=== PATIENT | male | born 1965 | race Caucasian/White ===

== ENCOUNTER 2016-11-07 20:10 | Emergency (ER) | payer SELFPAY ==
[~2016-11-07] VITALS: Ht 172.7 cm; Wt 68.0 kg
[2016-11-07 20:14] VITALS: Ht 172.7 cm; Wt 68.0 kg
== END 2016-11-07 20:47 | disposition left against medical advice (07) ==
LOC: FTE 20:10
DX: Z53.21 Procedure and treatment not carried out due to patient leaving prior to being seen by health care provider (principal)

== ENCOUNTER 2016-11-24 20:05 | Inpatient (IN) | payer OTHER ==
[~2016-11-24] VITALS: Ht 175.3 cm; Wt 64.5 kg
[2016-11-24] MEDS ORDERED: SOD CHLORIDE 0.9% 1,000 ML IV STA (21:40)
[2016-11-24] MEDS ORDERED: LORAZEPAM 2 MG INJ IV STA (21:40)
[2016-11-24 22:05] LABS: ADD SCAN DIFF NO
[2016-11-24 22:07] LABS: BASOPHILS % 0.1 % (0.0-2.0); EOSINOPHILS # 0.1 10^3/ul (0.0-0.5); EOSINOPHILS % 1.2 % (0.0-7.0); HEMATOCRIT 37.5 % (42.0-52.0); HEMOGLOBIN 12.9 g/dl (14.0-18.0); LYMPHOCYTES # 2.2 10^3/ul (0.8-2.9); LYMPHOCYTES % 27.5 % (15.0-51.0); MEAN CORPUSCULAR HEMOGLOBIN 32.4 pg (29.0-33.0); MEAN CORPUSCULAR HGB CONC 34.4 g/dl (32.0-37.0); MEAN CORPUSCULAR VOLUME 94.2 fl (82.0-101.0); MEAN PLATELET VOLUME 9.9 fl (7.4-10.4); MONOCYTE # 0.6 10^3/ul (0.3-0.9); MONOCYTES % 7.9 % (0.0-11.0); NEUTROPHIL # 5.1 10^3/ul (1.6-7.5); NEUTROPHILS % 62.8 % (39.0-77.0); PLATELET COUNT 200 10^3/UL (140-415); RED BLOOD COUNT 3.98 10^6/ul (4.70-6.10); RED CELL DISTRIBUTION WIDTH 11.9 % (11.5-14.5); WHITE BLOOD COUNT 8.1 10^3/ul (4.8-10.8)
[2016-11-24 22:17] LABS: ALBUMIN 4.1 g/dl (3.3-4.9)
[2016-11-24 22:18] LABS: CHLORIDE 100 mmol/L (97-110); POTASSIUM 4.2 mmol/L (3.5-5.1); SODIUM 135 mmol/L (135-144)
[2016-11-24 22:20] LABS: ADD UMIC YES; ALBUMIN/GLOBULIN RATIO 1.28; ALKALINE PHOSPHATASE 72 IU/L (42-121); ANION GAP 13 (8-16); ASPARTATE AMINO TRANSFERASE 683 IU/L (15-46); BILIRUBIN,INDIRECT 1.2 mg/dl (0-1.1); BILIRUBIN,TOTAL 1.2 mg/dl (0.2-1.3); BLOOD UREA NITROGEN 18 mg/dl (7-20); CARBON DIOXIDE 26 mmol/L (21-31); CREATININE 0.98 mg/dl (0.61-1.24); TOTAL PROTEIN 7.3 g/dl (6.1-8.1); URINE BILIRUBIN (Dip) 1+ (NEGATIVE); URINE BLOOD (Dip) 2+ (NEGATIVE); URINE COLOR DK. YELLOW (YELLOW); URINE GLUCOSE (Dip) NEGATIVE (NEGATIVE); URINE KETONES (Dip) 15 (NEGATIVE); URINE LEUKOCYTE ESTERASE (Dip) NEGATIVE (NEGATIVE); URINE NITRITE (Dip) NEGATIVE (NEGATIVE); URINE TOTAL PROTEIN (Dip) 1+ (NEGATIVE); URINE UROBILINOGEN (Dip) 2.0 E.U./dL (0.1-1.0)
[2016-11-24 22:21] LABS: ALANINE AMINOTRANSFERASE 203 IU/L (13-69); CALCIUM 9.2 mg/dl (8.4-10.2); GLUCOSE 92 mg/dl (70-220)
[2016-11-24 22:32] LABS: CANNABINOIDS Negative (NEGATIVE)
[2016-11-24 22:34] LABS: OPIATES Negative (NEGATIVE)
[2016-11-24 22:37] LABS: ACETAMINOPHEN < 10.0 ug/ml (10.0-30.0); SALICYLATE < 1.0 mg/dl (5.0-30.0)
[2016-11-24 22:40] LABS: BACTERIA,URINE FEW; ICTOTEST NEGATIVE (NEGATIVE); MUCUS,URINE MODERATE; TRANSITIONAL EPI CELLS,URINE OCCASIONAL; URINE RBCS 0-2 /HPF (0)
[2016-11-24 22:49] LABS: BARBITURATES Negative (NEGATIVE); BENZODIAZEPINES Negative (NEGATIVE); COCAINE Positive (NEGATIVE)
--- NOTE | 2016-11-24 22:54 | ERD ---
ER Documentation Chief Complaint Date/Time DATE: 11/24/16 TIME: 22:47 Chief Complaint suicidal ttempt- overdose w/ crystal meth, came holding a knife in triage HPI 51-year-old man brought in by his manager msw after he recently "ran away" patient states he was using methamphetamine for the last few days. Patient was triaged as suicidal attempt, although patient denies this he had no intention of hurting himself or others and has had no suicidal thoughts or feelings. He states he has been using methamphetamine and had agitation today but did not cut himself or hurt himself. He denies fevers or chills, no chest pain or shortness, no headache or blurry vision. Patient denies penile discharge or dysuria. Patient states he used to use antipsychotic medications although does not feel that he needs a refill and does not recall the names of them. He stated he does have a psychiatrist and a counselor that he follows up with. ROS All systems reviewed and are negative except as per history of present illness. Medications Home Meds Reported Medications Aspirin* (Aspirin*) 325 Mg Tablet, 325 MG PO DAILY, TAB 11/25/16 Allergies Allergies: Coded Allergies: Penicillins (Verified Allergy, Unknown, 11/24/16) sulfamethoxazole (Verified Allergy, Unknown, 11/24/16) trimethoprim (Verified Allergy, Unknown, 11/24/16) PMhx/Soc Drug abuse Medical and Surgical Hx: pt denies Medical Hx, pt denies Surgical Hx Hx Alcohol Use: Yes (2 drinks a day) Hx Substance Use: Yes (crystal meth) Hx Tobacco Use: No Smoking Status: Current every day smoker FmHx Family History: No diabetes Physical Exam Vitals Vital Signs Date Time Temp Pulse Resp B/P Pulse Ox O2 Delivery O2 Flow Rate FiO2 11/25/16 01:37 98.6 72 16 121/68 99 Room Air 11/24/16 23:35 98.2 77 16 123/72 97 11/24/16 22:10 98.2 81 16 125/72 97 11/24/16 20:26 97.6 104 20 133/80 97 Physical Exam GENERAL: Well-developed, well-nourished, appears dehydrated and anxious HEENT: Dry mucous membranes, pink conjunctiva, no cervical spine tenderness or step-off deformities, no goiter, no jaundice or icterus, extraocular movements intact without pain. No submandibular induration, and no pharyngeal erythema NEURO: Alert and oriented 3, cranial nerves II through XII intact bilaterally, pupils equal round reactive to light, no focal deficits or facial asymmetry, sensation intact distally Strength 5/5 in upper and lower extremities bilaterally CARDIAC: Tachycardic and regular, no murmurs rubs or gallops LUNGS: Clear bilaterally no wheezing crackles or stridor ABDOMEN: Soft nontender, no guarding, no rigidity, no rebound, no psoas sign no obturator sign. Normoactive bowel sounds SKIN: Warm and dry to touch, no abrasions, contusions, or hematomas, no lacerations, no ecchymosis, no target lesions, and without ulcers EXTREMITIES: No clubbing cyanosis or edema, calves are bilaterally symmetrical, no Homans sign, no popliteal cord sign. Distal pulses equal and bilateral PSYCH: Anxious Result Diagram: 11/26/16 0435 11/26/16 0435 Results 24 hrs Laboratory Tests Test 11/24/16 21:55 White Blood Count 8.110^3/ul Red Blood Count 3.9810^6/ul Hemoglobin 12.9g/dl Hematocrit 37.5% Mean Corpuscular Volume 94.2fl Mean Corpuscular Hemoglobin 32.4pg Mean Corpuscular Hemoglobin Concent 34.4g/dl Red Cell Distribution Width 11.9% Platelet Count 58526^3/UL Mean Platelet Volume 9.9fl Neutrophils % 62.8% Lymphocytes % 27.5% Monocytes % 7.9% Eosinophils % 1.2% Basophils % 0.1% Nucleated Red Blood Cells % 0.0/100WBC Neutrophils # 5.110^3/ul Lymphocytes # 2.210^3/ul Monocytes # 0.610^3/ul Eosinophils # 0.110^3/ul Basophils # 0.010^3/ul Nucleated Red Blood Cells # 0.010^3/ul Urine Color DK. YELLOW Urine Clarity SLIGHTLY CLOUDY Urine pH 6.0 Urine Specific [place] 1.025 Urine Ketones 15 Urine Nitrite NEGATIVE Urine Bilirubin 1+ Urine Ictotest NEGATIVE Urine Urobilinogen 2.0 E.U./dL Urine Leukocyte Esterase NEGATIVE Urine Microscopic RBC 0-2/HPF Urine Microscopic WBC 0-2/HPF Urine Transitional Epithelial Cells OCCASIONAL Urine Bacteria FEW Urine Hyaline Casts OCCASIONAL Urine Mucus MODERATE Urine Hemoglobin 2+ Urine Glucose NEGATIVE% Urine Total Protein 1+ Sodium Level 135mmol/L Potassium Level 4.2mmol/L Chloride Level 100mmol/L Carbon Dioxide Level 26mmol/L Anion Gap 13 Blood Urea Nitrogen 18mg/dl Creatinine 0.98mg/dl Glucose Level 92mg/dl Calcium Level 9.2mg/dl Total Bilirubin 1.2mg/dl Direct Bilirubin 0.00mg/dl Indirect Bilirubin 1.2mg/dl Aspartate Amino Transf (AST/SGOT) 683IU/L Alanine Aminotransferase (ALT/SGPT) 203IU/L Alkaline Phosphatase 72IU/L Creatine Kinase 67401DL/L Total Protein 7.3g/dl Albumin 4.1g/dl Globulin 3.20g/dl Albumin/Globulin Ratio 1.28 Salicylates Level < 1.0mg/dl Urine Opiates Screen Negative Acetaminophen Level < 10.0ug/ml Urine Barbiturates Negative Urine Amphetamines Screen Positive Urine Benzodiazepines Screen Negative Urine Cocaine Screen Positive Urine Cannabinoids Negative Ethyl Alcohol Level 33.0mg/dl Current Medications Medications (Trade) Dose Ordered Sig/Juma Route PRN Reason Start Time Stop Time Status Last Admin Dose Admin Sodium Chloride (NS) 1,000 ml @ 2,000 mls/hr Q30M STAT IV 11/24/16 21:40 11/24/16 22:09 DC 11/24/16 22:07 Lorazepam (Ativan) 0.5 mg ONCE STAT IV 11/24/16 21:40 11/24/16 21:42 DC 11/24/16 22:07 Procedures/MDM IV line was established patient was placed on laboratory monitor rhythm strip revealed a sinus rhythm at about 90 bpm with upright P and T waves. Patient was afebrile. For dehydration I administered 2 L normal saline intravenously and lorazepam 0.5 mg IV for anxiety. Aspirin Tylenol levels were negative, alcohol level was negative, CBC was normal and electrolytes revealed dehydration, liver function tests normal. Urine analysis reveals hemoglobinuria and bilirubinuria, drug screen positive for methamphetamines and cocaine, CK elevated at 19,000 consistent with acute severe rhabdomyolysis Patient will be admitted for continued IV hydration and reevaluation. Departure Diagnosis: Primary Impression: Methamphetamine abuse Additional Impressions: Dehydration Rhabdomyolysis Rhabdomyolysis type: non-traumatic Qualified Code: M62.82 - Non-traumatic rhabdomyolysis Condition: Fair Patient Instructions: Dehydration (6Y-Adult), Methamphetamine Hydrochloride Oral tablet MAX ZAVALA MD Nov 24, 2016 22:54
[2016-11-25 03:00] VITALS: TEMP 98.6
[2016-11-25 03:40] VITALS: BP 118/74; PULSE 78; RESP 16
[2016-11-25] MEDS: SOD CHLORIDE 0.9% 1,000 ML IV SCH ×3 (04:19→16:21)
[2016-11-25 04:29] VITALS: Ht 175.3 cm; Wt 64.5 kg
[2016-11-25] MEDS ORDERED: ACETAMINOPHEN 325 MG TAB PO PRN (04:30)
[2016-11-25] MEDS ORDERED: ASPI325T4 PO (04:58)
[2016-11-25] MEDS: LORAZEPAM 2 MG INJ IV PRN ×2 (06:59→22:03)
[2016-11-25 07:47] LABS: ADD SCAN DIFF NO
[2016-11-25 07:54] LABS: BASOPHILS % 0.2 % (0.0-2.0); EOSINOPHILS # 0.1 10^3/ul (0.0-0.5); EOSINOPHILS % 2.1 % (0.0-7.0); HEMATOCRIT 34.1 % (42.0-52.0); HEMOGLOBIN 11.5 g/dl (14.0-18.0); LYMPHOCYTES # 1.2 10^3/ul (0.8-2.9); LYMPHOCYTES % 24.3 % (15.0-51.0); MEAN CORPUSCULAR HEMOGLOBIN 31.9 pg (29.0-33.0); MEAN CORPUSCULAR HGB CONC 33.7 g/dl (32.0-37.0); MEAN CORPUSCULAR VOLUME 94.5 fl (82.0-101.0); MEAN PLATELET VOLUME 9.9 fl (7.4-10.4); MONOCYTE # 0.4 10^3/ul (0.3-0.9); MONOCYTES % 7.2 % (0.0-11.0); NEUTROPHIL # 3.2 10^3/ul (1.6-7.5); PLATELET COUNT 171 10^3/UL (140-415); RED BLOOD COUNT 3.61 10^6/ul (4.70-6.10); RED CELL DISTRIBUTION WIDTH 12.1 % (11.5-14.5); WHITE BLOOD COUNT 4.9 10^3/ul (4.8-10.8)
--- NOTE | 2016-11-25 08:03 | HP ---
DATE OF ADMISSION: 11/25/2016 TIME SEEN: 4 a.m. CHIEF COMPLAINT: Crystal meth overdose. HISTORY OF PRESENT ILLNESS: The patient is a 51-year-old male with a history of HIV who was brought to the ER for agitation and paranoia after smoking methamphetamine. Initially when he came to the triage, there was a question of a suicide attempt; however, the patient has denied. He said he has been using methamphetamines for the past few days and has been feeling really anxious, agitated, and paranoid. He said he is HIV positive, but does not remember what medication he takes. He also yissel es aspirin 325 mg and previously he used to take psychiatric medications in the past. When he presented to the ER, his heart rate was 104. Otherwise, the rest of his vitals were stable. Laboratory value shows a creatinine kinase of about 19,000, AST almost 700, ALT 200, and hemoglobi n 12.9. Otherwise, the rest of his vitals were within acceptable range. Of note, the rest of his C BC and CMP are within acceptable range. He is currently anxious; however, he repeatedly denied suic idal ideation or homicidal ideation. REVIEW OF SYSTEMS: A 12-point review was performed and negative except as noted in the HPI. PAST MEDICAL HISTORY: As per HPI. PAST SURGICAL HISTORY: He had some type of right hand surgery many years ago. SOCIAL HISTORY: Positive for marijuana, cocaine, and methamphetamine. ALLERGIES: NO KNOWN DRUG ALLERGIES. HOME MEDICATIONS: 1. Aspirin 325 mg daily. 2. HIV medications, the names of which the patient does not remember now. PHYSICAL EXAMINATION: VITAL SIGNS: Stable. GENERAL: The patient appears anxious. He, however, answers questions. HEENT: No obvious head deformity. Pupils are reactive to light. Extraocular muscles intact. CARDIOVASCULAR: Regular rate and rhythm. No extra sounds. LUNGS: Clear. ABDOMEN: Soft, nontender, nondistended. Positive bowel sounds. EXTREMITIES: No edema. NEUROLOGIC: No focal deficit. LABORATORY: Pertinent positive results as mentioned in the HPI. IMPRESSION: 1. Methamphetamine overdose. 2. Agitation, secondary to above. 3. Rhabdomyolysis. 4. Elevated transaminases. 5. History of human immunodeficiency virus. 6. History of psychiatric disorder. PLAN: He will be placed on IV antibiotics for his rhabdomyolysis. Will follow up labs including hi s kidney function closely. For his abnormal liver enzymes, I will order abdominal ultrasound, and w ill also order a hepatitis panel as the patient is at risk. Will check his CD4 count and HIV viral loads. When he finds out what type of medication that he takes for HIV, will continue. Will consid er placing an infectious disease consult to help with his HIV medications. He will receive antianxi ety medications as needed. Further workup and management per clinical course. Dictated By: DEL CLARK MD DA/KINDRA Conf#: [id number] DID#: [id number]
[2016-11-25] MEDS: ASPIRIN (EC) 325 MG TAB PO SCH (08:14)
[2016-11-25 08:29] LABS: ALBUMIN 3.4 g/dl (3.3-4.9); POTASSIUM 3.4 mmol/L (3.5-5.1)
[2016-11-25 08:31] LABS: CREATININE 0.8 mg/dl (0.61-1.24)
[2016-11-25 08:32] LABS: ALBUMIN/GLOBULIN RATIO 1.06; BILIRUBIN,INDIRECT 1.1 mg/dl (0-1.1); BILIRUBIN,TOTAL 1.1 mg/dl (0.2-1.3); CALCIUM 8.1 mg/dl (8.4-10.2); TOTAL PROTEIN 6.6 g/dl (6.1-8.1)
[2016-11-25 08:36] VITALS: BP 140/75; RESP 18
[2016-11-25 09:15] LABS: HAAIG REFLEX REFLEX FILED
[2016-11-25 10:26] LABS: HEPATITIS B CORE ANTIBODY REACTIVE (NEGATIVE)
--- NOTE | 2016-11-25 15:27 | RADRPT ---
PROCEDURE: US Abdomen and Retroperitoneum. CLINICAL INDICATION: Abnormal liver function tests. TECHNIQUE: Multiple real-time longitudinal and transverse images were acquired of the patient's ab domen and retroperitoneum utilizing a curved array transducer. COMPARISON: No prior studies are available for comparison. FINDINGS: The liver is normal in size and echogenicity. The liver has a normal smooth surface. There is no fo mark hepatic lesion. Color Doppler and pulsed Doppler sonography demonstrate normal antegrade flow in the portal vein. There is sludge in the gallbladder. There are no gallstones and there is no gallbladder wall thicke cait or fluid around the gallbladder. The bile ducts are dilated with the common bile duct measuring 8.4 mm in diameter. The spleen is normal in size. There is no focal splenic lesion. The pancreas is partially seen and is unremarkable. There is no free fluid. The right kidney measures 11.1 x 4.2 cm and the left kidney measures 10.6 x 5.4 cm. There is no renal mass. There is no hydronephrosis or calculus. The abdominal aorta is not dilated. The inferior vena cava is unremarkable. IMPRESSION: 1. Sludge in the gallbladder. No gallstones or evidence of cholecystitis. 2. Otherwise normal ultrasound of the abdomen and retroperitoneum. RPTAT: QQ .Primo Norman MD, MD Date Time Electronically viewed and signed by .Primo Norman MD, on 11/25/2016 15:27 .R/
[2016-11-25] MEDS ORDERED: POTASSIUM CHLORIDE (SR) 20 MEQ TAB PO STA (16:06)
--- NOTE | 2016-11-25 16:42 | CONS ---
DATE OF ADMISSION: 11/25/2016 DATE OF CONSULTATION: 11/25/2016 TYPE OF CONSULTATION: Infectious disease. REASON FOR CONSULTATION: Antibiotic management. HISTORY OF PRESENT ILLNESS: Prince Harris is a 51-year-old male with a history of HIV who was bro ught to the emergency room for agitation and paranoia after smoking crystal methamphetamine. The pa tient denied suicidal ideation. He had methamphetamine for a few days and feeling very anxious, zachary tated and paranoid. He is HIV positive. Did remember what medication he took. Temperature was 104 . Laboratory showed CPK of 19,000. AST was 700, ALT 200. On admission, his white count was 8.1 an d today is 4.9, H and H 11.5 and 34.1, platelet count of 171,000. BUN and creatinine are 13/0.80. Urine shows negative nitrite, negative leukocyte esterase. Surface antibody positive for hepatitis surface antibody which is good. He is negative for hepatitis C. His abdominal ultrasound showed sl udge in the gallbladder, no gallstones or evidence of cholecystitis, otherwise normal ultrasound of the abdomen and retroperitoneum. MEDICATIONS: 1. Aspirin. 2. Lorazepam. 3. Acetaminophen. 4. Right now clear what his HIV meds are. PAST MEDICAL HISTORY: Operations as outlined. FAMILY HISTORY: Noncontributory. SOCIAL HISTORY: He is positive for marijuana, cocaine and methamphetamine. PAST SURGICAL HISTORY: He had some type of right hand surgery many years ago. ALLERGIES: NONE TO PENICILLIN, SULFA OR FOODS. MEDICATIONS: Per chart. REVIEW OF SYSTEMS: As per HPI. PHYSICAL EXAMINATION: GENERAL: The patient is a well-developed, but somewhat disheveled male who is awake, responsive, an xious, in no acute distress. VITAL SIGNS: Stable. He is afebrile. SKIN: Without generalized rash. HEENT: Within normal limits. NECK: Supple. LYMPH NODES: None palpable. CHEST: Decreased breath sounds at the bases. HEART: Without murmur or gallop. ABDOMEN: Soft, nontender, without organosplenomegaly or masses. EXTREMITIES: Without cyanosis, clubbing, or edema. RECTAL AND GENITAL: Deferred. NEUROLOGIC: No focal neurological abnormalities. IMPRESSION: We will have hydrate him for his rhabdomyolysis, watch his kidney functions and CD4 and viral human immunodeficiency virus viral loads. HIV-1 RNA by PCR was ordered and we will try to fi nd out what medications he is taking. I will dictate my findings to the hospitalist. Dictated By: LEXUS HUBBARD MD, JD/KINDRA Conf#: [id number] DID#: [id number]
[2016-11-25 19:34] VITALS: BP 120/70; PULSE 82; RESP 18
[2016-11-26] MEDS: SOD CHLORIDE 0.9% 1,000 ML IV SCH ×3 (00:01→08:20)
[2016-11-26 05:04] LABS: ADD SCAN DIFF NO
[2016-11-26 05:17] LABS: BASOPHILS % 0.2 % (0.0-2.0); EOSINOPHILS # 0.2 10^3/ul (0.0-0.5); EOSINOPHILS % 4.9 % (0.0-7.0); HEMATOCRIT 34.4 % (42.0-52.0); HEMOGLOBIN 11.1 g/dl (14.0-18.0); LYMPHOCYTES % 45.5 % (15.0-51.0); MEAN CORPUSCULAR HEMOGLOBIN 31.6 pg (29.0-33.0); MEAN CORPUSCULAR HGB CONC 32.3 g/dl (32.0-37.0); MEAN PLATELET VOLUME 10.1 fl (7.4-10.4); MONOCYTE # 0.4 10^3/ul (0.3-0.9); MONOCYTES % 8.9 % (0.0-11.0); NEUTROPHIL # 1.7 10^3/ul (1.6-7.5); NEUTROPHILS % 40.3 % (39.0-77.0); PLATELET COUNT 154 10^3/UL (140-415); RED BLOOD COUNT 3.51 10^6/ul (4.70-6.10); RED CELL DISTRIBUTION WIDTH 12.5 % (11.5-14.5); WHITE BLOOD COUNT 4.3 10^3/ul (4.8-10.8)
[2016-11-26 05:25] LABS: POTASSIUM 4.4 mmol/L (3.5-5.1)
[2016-11-26 05:27] LABS: ALBUMIN/GLOBULIN RATIO 0.83; BILIRUBIN,INDIRECT 0.3 mg/dl (0-1.1); BILIRUBIN,TOTAL 0.3 mg/dl (0.2-1.3); CREATININE 0.83 mg/dl (0.61-1.24); TOTAL PROTEIN 6.6 g/dl (6.1-8.1)
[2016-11-26 05:28] LABS: CALCIUM 8.5 mg/dl (8.4-10.2)
[2016-11-26 05:33] LABS: MAGNESIUM 1.9 mg/dl (1.7-2.5); PHOSPHORUS 3.7 mg/dl (2.5-4.9)
[2016-11-26 08:01] VITALS: BP 122/77; RESP 19
[2016-11-26] MEDS: ASPIRIN (EC) 325 MG TAB PO SCH (08:20)
--- NOTE | 2016-11-26 08:51 | PDOCDIS ---
Discharge Instructions CONDITION Patient Condition: Good HOME CARE INSTRUCTIONS: Diet Instructions: Regular ACTIVITY: Activity Restrictions: No Restrictions FOLLOW UP/APPOINTMENTS Appointments F/U WITH YOUR PCP IN 1-2 WEEKS PATRICIA HERNANDEZ Nov 26, 2016 08:51
--- NOTE | 2016-11-26 11:01 | DS ---
DATE OF ADMISSION: 11/25/2016 DATE OF DISCHARGE: 11/25/2016 DISCHARGE DIAGNOSES: 1. Methamphetamine overdose with rhabdomyolysis improved with IV fluids. No evidence of acute tubu lar necrosis. 2. Human immunodeficiency virus. Continue home HAART medications. HOSPITAL COURSE: The patient is a 51-year-old male with a history of HIV as well as substance abuse . The patient presents with a crystal meth overdose. He was found agitated, paranoid after smoking methamphetamine. The patient also had rhabdomyolysis with an elevated creatinine kinase is high as 90,166. The patient's UA did also suggest rhabdomyolysis. The patient received IV fluids. Renal function remained stable. Patient's total CK did trend down. The patient was advised that he needs to stop using crystal meth. He understood. He does state that he is compliant with his HAART medic ations. The patient's hepatitis panel was negative for hepatitis C. The patient's hepatitis B surfa ce antibody was positive; antigen was negative. There was a reactiveness to the hepatitis C core to leonora antibody. Hence no hepatitis B or C were noted. Of note, the patient's U-tox did show positive amphetamines and cocaine. The patient was felt to be stable for discharge. On the day of discharge, the patient's vitals, labs, and physical exam were stable. He had no acute complaints and questions were answered. The patient was seen by ID during this hospitalization. CONDITION ON DISCHARGE: Stable. DISPOSITION: To home. MEDICATIONS: The patient is to continue his usual home medications. FOLLOWUP: The patient is to follow up with his PCP in 1 to 2 weeks. Greater than 30 minutes was spent coordinating discharge of this patient. Dictated By: PATRICIA HERNANDEZ MD BS/NTS Conf#: [id number] DID#: [id number]
[2016-11-27 11:12] LABS: LYMPHOCYTE - % CD4 (HELPER) 16 % (30-61); LYMPHOCYTE - %CD8 (SUPPRESSOR) 68 % (12-42); LYMPHOCYTE - ABSOLUTE CD4 265 cells/uL (490-1740); LYMPHOCYTE - ABSOLUTE CD8 1102 cells/uL (180-1170); LYMPHOCYTE - CD4/CD8 RATIO 0.24 (0.86-5.00)
== END 2016-11-26 13:15 | disposition home or self-care (01) | DRG 917 ==
LOC: E/R 20:05 → MS1 11-25 01:48
PROVIDERS: ADMIT Internal Medicine; ATTEND Internal Medicine
DX: T43.621A Poisoning by amphetamines, accidental (unintentional), initial encounter (principal); B20 Human immunodeficiency virus [HIV] disease; M62.82 Rhabdomyolysis; R45.1 Restlessness and agitation; R74.0 Nonspecific elevation of levels of transaminase and lactic acid dehydrogenase [LDH]; Z79.82 Long term (current) use of aspirin; Y92.9 Unspecified place or not applicable
CPT/HCPCS: 36415; 76700; 80053; 80306; 80307; 81001; 81003; 82550; 82553; 83735; 84100; 84484; 85025; 86360; 86704; 86706; 86709; 86803; 87340; 87536; 96374; J2060; J7030

== ENCOUNTER 2016-12-28 16:28 | Emergency (ER) | payer OTHER ==
[~2016-12-28] VITALS: Ht 175.3 cm; Wt 64.5 kg
[~2016-12-28 16:28] MED LIST: ASPI325T4 PO
[2016-12-28 16:38] VITALS: Ht 175.3 cm; Wt 64.5 kg
[2016-12-28] MEDS ORDERED: SOD CHLORIDE 0.9% 1,000 ML IV STA ×2 (17:07→18:14)
[2016-12-28] MEDS ORDERED: LORAZEPAM 2 MG INJ IV ONE (17:30)
[2016-12-28 17:49] LABS: ADD SCAN DIFF NO
[2016-12-28 17:53] LABS: BASOPHILS % 0.3 % (0.0-2.0); EOSINOPHILS % 0.7 % (0.0-7.0); HEMATOCRIT 42.8 % (42.0-52.0); HEMOGLOBIN 14.4 g/dl (14.0-18.0); LYMPHOCYTES # 1.8 10^3/ul (0.8-2.9); LYMPHOCYTES % 30.9 % (15.0-51.0); MEAN CORPUSCULAR HGB CONC 33.6 g/dl (32.0-37.0); MEAN PLATELET VOLUME 9.9 fl (7.4-10.4); MONOCYTE # 0.5 10^3/ul (0.3-0.9); MONOCYTES % 9.2 % (0.0-11.0); NEUTROPHIL # 3.4 10^3/ul (1.6-7.5); NEUTROPHILS % 58.6 % (39.0-77.0); PLATELET COUNT 200 10^3/UL (140-415); RED BLOOD COUNT 4.65 10^6/ul (4.70-6.10); RED CELL DISTRIBUTION WIDTH 11.8 % (11.5-14.5); WHITE BLOOD COUNT 5.8 10^3/ul (4.8-10.8)
[2016-12-28 18:01] LABS: ALBUMIN 4.6 g/dl (3.3-4.9)
[2016-12-28 18:02] LABS: POTASSIUM 3.1 mmol/L (3.5-5.1)
[2016-12-28 18:04] LABS: BILIRUBIN,INDIRECT 0.5 mg/dl (0-1.1); BILIRUBIN,TOTAL 0.5 mg/dl (0.2-1.3); CREATININE 1.3 mg/dl (0.61-1.24)
[2016-12-28 18:05] LABS: ALBUMIN/GLOBULIN RATIO 1.15; CALCIUM 9.4 mg/dl (8.4-10.2); TOTAL PROTEIN 8.6 g/dl (6.1-8.1)
[2016-12-28] MEDS ORDERED: POTASSIUM CHLORIDE (SR) 20 MEQ TAB PO STA (18:11)
--- NOTE | 2016-12-28 19:12 | ERD ---
ER Documentation Chief Complaint Date/Time DATE: 12/28/16 TIME: 19:09 Chief Complaint pt crying states he smoked crystal meth , feeling paranoid HPI This is a 51-year-old male who presents to the emergency room for evaluation of paranoia. This patient states that he did smoke crystal amphetamine last night and states she is feeling paranoid. The patient denies any homicidal ideation, and also denies any suicidal ideation. The patient came to the emergency room for further evaluation. ROS All systems reviewed and are negative except as per history of present illness. Medications Home Meds Reported Medications Aspirin* (Aspirin*) 325 Mg Tablet, 325 MG PO DAILY, TAB 11/25/16 Allergies Allergies: Coded Allergies: Penicillins (Verified Allergy, Unknown, 11/24/16) sulfamethoxazole (Verified Allergy, Unknown, 11/24/16) trimethoprim (Verified Allergy, Unknown, 11/24/16) PMhx/Soc History of Surgery: No Anesthesia Reaction: No Hx Neurological Disorder: No Hx Respiratory Disorders: No Hx Cardiac Disorders: No Hx Psychiatric Problems: No Hx Miscellaneous Medical Probl: No Hx Alcohol Use: No Hx Substance Use: No Hx Tobacco Use: No Smoking Status: Never smoker Physical Exam Vitals Vital Signs Date Time Temp Pulse Resp B/P Pulse Ox O2 Delivery O2 Flow Rate FiO2 12/28/16 18:14 88 12/28/16 16:38 98.0 120 18 162/100 97 Physical Exam Const: No acute distress Head: Atraumatic Eyes: Normal Conjunctiva ENT: Dry mucous membranes, normal External Ears, Nose and Mouth. Neck: Full range of motion..~ No meningismus. Resp: Clear to auscultation bilaterally Cardio: Tachycardic no murmurs Abd: Soft, non tender, non distended. Normal bowel sounds Skin: No petechiae or rashes Back: No midline or flank tenderness Ext: No cyanosis, or edema Neur: Awake and alert Psych: Normal Mood and Affect Result Diagram: 12/28/16 1720 12/28/16 1720 Results 24 hrs Laboratory Tests Test 12/28/16 17:20 White Blood Count 5.810^3/ul Red Blood Count 4.6510^6/ul Hemoglobin 14.4g/dl Hematocrit 42.8% Mean Corpuscular Volume 92.0fl Mean Corpuscular Hemoglobin 31.0pg Mean Corpuscular Hemoglobin Concent 33.6g/dl Red Cell Distribution Width 11.8% Platelet Count 07396^3/UL Mean Platelet Volume 9.9fl Neutrophils % 58.6% Lymphocytes % 30.9% Monocytes % 9.2% Eosinophils % 0.7% Basophils % 0.3% Nucleated Red Blood Cells % 0.0/100WBC Neutrophils # 3.410^3/ul Lymphocytes # 1.810^3/ul Monocytes # 0.510^3/ul Eosinophils # 0.010^3/ul Basophils # 0.010^3/ul Nucleated Red Blood Cells # 0.010^3/ul Sodium Level 137mmol/L Potassium Level 3.1mmol/L Chloride Level 97mmol/L Carbon Dioxide Level 23mmol/L Anion Gap 20 Blood Urea Nitrogen 19mg/dl Creatinine 1.30mg/dl Glucose Level 105mg/dl Calcium Level 9.4mg/dl Total Bilirubin 0.5mg/dl Direct Bilirubin 0.00mg/dl Indirect Bilirubin 0.5mg/dl Aspartate Amino Transf (AST/SGOT) 114IU/L Alanine Aminotransferase (ALT/SGPT) 65IU/L Alkaline Phosphatase 74IU/L Creatine Kinase 2353IU/L Total Protein 8.6g/dl Albumin 4.6g/dl Globulin 4.00g/dl Albumin/Globulin Ratio 1.15 Current Medications Medications (Trade) Dose Ordered Sig/Juma Route PRN Reason Start Time Stop Time Status Last Admin Dose Admin Sodium Chloride (NS) 1,000 ml @ 1,000 mls/hr Q1H STAT IV 12/28/16 17:07 12/28/16 18:06 DC 12/28/16 17:29 Lorazepam (Ativan) 2 mg ONCE ONCE IV 12/28/16 17:30 12/28/16 17:31 DC 12/28/16 17:29 Potassium Chloride 40 meq 40 meq ONCE STAT PO 12/28/16 18:11 12/28/16 18:19 DC Sodium Chloride (NS) 1,000 ml @ 1,000 mls/hr Q1H STAT IV 12/28/16 18:14 12/28/16 19:13 12/28/16 18:56 Procedures/MDM EKG: Rate/Rhythm: [Normal Sinus Rhythm] QRS, ST, T-waves: [No changes consistent w/ acute ischemia] Impression: [No evidence of ischemia or arrhythmia] This 51-year-old male presents to the emergency room for evaluation of paranoia. This patient did smoke methamphetamine last night. He is denying any homicidal ideation or suicidal ideation. When I evaluated this patient originally he was tachycardic. He did have dry mucous membranes. This patient had lab work drawn and was given 2 L of fluid and now 2 mg of Ativan IV. Pulmonary evaluation this patient has a heart rate of 88 bpm. His EKG is nonischemic. Lab work does reveal potassium 3.1. He did have his potassium supplemented by mouth. And he does have mild rhabdomyolysis. I have trended his labs and it appears this patient was admitted last month for rhabdomyolysis with a CK level of greater than 19,000. Today his CK level is 2300. He is urinating without difficulty and will be discharged home at this time. Departure Diagnosis: Primary Impression: Amphetamine abuse Additional Impressions: Rhabdomyolysis Hypokalemia Condition: Stable LISSA TRINIDAD DO Dec 28, 2016 19:12
[2016-12-28 21:02] VITALS: BP 108/65; PULSE 73; RESP 20; TEMP 98.2
== END 2016-12-28 21:19 | disposition home or self-care (01) ==
LOC: E/R 16:28
DX: F15.10 Other stimulant abuse, uncomplicated (principal); R40.2252 Coma scale, best verbal response, oriented, at arrival to emergency department; M62.82 Rhabdomyolysis; E87.6 Hypokalemia; R40.2142 Coma scale, eyes open, spontaneous, at arrival to emergency department; R40.2362 Coma scale, best motor response, obeys commands, at arrival to emergency department; Z79.82 Long term (current) use of aspirin
CPT/HCPCS: 80053; 82550; 85025; 93005; 96374; J2060; J7030; Z7502; Z7610